=== PATIENT | male | born 2000 | race Caucasian/White ===

== ENCOUNTER 2022-08-08 07:16 | Emergency (ER) | payer BC ==
[2022-08-08] MEDS ORDERED: Acetaminophen 500 MG TAB ONE (08:01)
[2022-08-08] MEDS ORDERED: Ketorolac Tromethamine 30 MG/ML VIAL ONE (08:01)
== END 2022-08-08 08:01 | disposition home or self-care (01) ==
LOC: CSHERS 07:16
DX: M70.812 Other soft tissue disorders related to use, overuse and pressure, left shoulder (principal)
CPT/HCPCS: 96372; 99283; J1885